=== PATIENT | female | born 1945 | race Caucasian/White ===

== ENCOUNTER 2018-03-22 08:05 | Observation (INO) ==
--- NOTE | 2018-03-22 08:22 | ED ---
HPI General Chief complaint: Weakness Stated complaint: general weakness/evac Time Seen by Provider: 03/22/18 08:21 Source: patient Mode of arrival: ambulatory Limitations: no limitations History of Present Illness HPI Narrative: 72-year-old female patient with history of hypertension presents to the ER today brought in by EMS because she was incontinent of urine in bed this morning and looked more disoriented according to . Patient currently denies issues, states that she peed in bed and her called the ambulance. She denies any abdominal pains, chest pains, headaches, shortness of breath, or other symptoms. However, it is unclear whether she is a reliable historian. Modifying Factors: None Associated Signs & Symptoms: Urinary incontinence, disorientation Risk Factors: Elderly Related Data Home Medications Medication Instructions Recorded Confirmed Unable to Obtain Home Meds 03/22/18 03/22/18 Allergies Allergy/AdvReac Type Severity Reaction Status Date / Time No Known Allergies Allergy Verified 03/22/18 08:07 Review of Systems ROS Unobtainable ROS Unobtainable: unobtainable due to mental status [facility] Medical History Medical History Hx of hysterectomy (Acute) Hypertension (Acute) Social History Social History Substance History: No History of Abuse Smoking Status: Former smoker How Often Do You Have a Drink Containing Alcohol: Monthly or less Recent Travel in [facility] within the Last 8 Weeks: No Recent Out of Country Travel within the Last 8 Weeks: No Immunization History Tetanus Immunization: Unsure Exam Narrative Exam Narrative: GENERAL: Well-developed elderly female patient currently and mild distress. Awake, alert, oriented x2. SKIN: Focused skin assessment warm/dry. HEAD: Atraumatic. Normocephalic. EYES: Pupils equal and round. No scleral icterus. No injection or drainage. ENT: No nasal bleeding or discharge. Mucous membranes pink and moist. NECK: Trachea midline. No JVD. CARDIOVASCULAR: Regular rate and rhythm. No murmur appreciated. RESPIRATORY: No accessory muscle use. Clear to auscultation. Breath sounds equal bilaterally. GASTROINTESTINAL: Abdomen soft, non-tender, nondistended. Hepatic and splenic margins not palpable. MUSCULOSKELETAL: No obvious deformities. No clubbing. No cyanosis. No edema. NEUROLOGICAL: Awake and alert. No obvious cranial nerve deficits. Motor grossly within normal limits. Normal speech. PSYCHIATRIC: Appropriate mood and affect; insight and judgment poor. Course Initial Documented Vital Signs Temperature 99.2 F 03/22/18 08:07 Pulse Rate 62 03/22/18 08:07 Respiratory Rate 20 03/22/18 08:07 Blood Pressure 134/91 H 03/22/18 08:07 Pulse Oximetry 98 03/22/18 08:07 Last Documented Vital Signs Temperature 99.2 F 03/22/18 08:07 Pulse Rate 63 03/22/18 08:29 Respiratory Rate 20 03/22/18 08:29 Blood Pressure 135/77 03/22/18 08:29 Pulse Oximetry 99 03/22/18 08:25 Medical Decision Making MDM Narrative Medical decision making narrative: Lab work is fairly unremarkable. Her CT brain did not show any signs of acute processes. Vital signs are stable in the ER. Patient is oriented to self and place but thinks that this is 1946. At this point, it is unclear what is causing her urinary incontinence. My plan would be to admit her for further evaluation. Case is discussed with Dr. Gilman for admission as an observation. Medical Screen Exam Complete: Yes Emergency Medical Condition: Yes Differential Diagnosis Differential Diagnosis: UTI versus electrolyte abnormalities versus sepsis versus seizures versus acute intracranial processes Lab Data Lab results reviewed: Yes I reviewed the patient's lab results. Result diagrams: 03/22/18 08:15 03/22/18 08:15 Lab Results 03/22/18 03/22/18 03/22/18 Range/Units 08:15 08:15 08:40 CBC w Diff Auto diff final WBC 8.4 (4.0-11.0) th/mm3 RBC 4.06 (4.00-5.30) mil/mm3 Hgb 12.9 (11.6-15.3) gm/dL Hct 39.1 (35.0-46.0) % MCV 96.5 (80.0-100.0) fL MCH 31.8 (27.0-34.0) pg MCHC 33.0 (32.0-36.0) % RDW 13.8 (11.6-17.2) % Plt Count 300 (150-450) th/mm3 MPV 9.2 (7.0-11.0) fL Neut % (Auto) 54.5 (16.0-70.0) % Lymph % (Auto) 24.0 (9.0-44.0) % [place] % (Auto) 7.0 (0.0-8.0) % Eos % (Auto) 13.7 H (0.0-4.0) % Baso % (Auto) 0.8 (0.0-2.0) % Neut # (Auto) 4.6 (1.8-7.7) th/mm3 Lymph # (Auto) 2.0 (1.0-4.8) th/mm3 [place] # (Auto) 0.6 (0.0-0.9) th/mm3 Eos # (Auto) 1.1 H (0.0-0.4) th/mm3 Baso # (Auto) 0.1 (0.0-0.2) th/mm3 WBC Differential . Differential Comment . Sodium 140 (136-145) meq/L Potassium 3.9 (3.5-5.1) meq/L Chloride 106 (98-107) meq/L Carbon Dioxide 28.9 (21.0-32.0) meq/L Anion Gap 5 (5-15) meq/L BUN 11 (7-18) mg/dL Creatinine 1.20 H (0.50-1.00) mg/dL Estimated GFR 44 L (>89) mL/min Random Glucose 99 (74-106) mg/dL Calcium 10.1 (8.5-10.1) mg/dL Magnesium 2.3 (1.5-2.5) mg/dL Total Bilirubin 0.4 (0.2-1.0) mg/dL AST 13 L (15-37) U/L ALT 16 (10-53) U/L Alkaline Phosphatase 79 (45-117) U/L Troponin I Less than 0.02 L (0.02-0.05) ng/mL Total Protein 7.6 (6.4-8.2) g/dL Albumin 3.8 (3.4-5.0) g/dL Ur Collection Type Cath Urine Color Straw (Yellw/Straw) Urine Clarity Clear (Clear) Urine pH 7.0 (5.0-8.5) Ur Specific [place] Less/equal 1.005 (1.002-1.035) Urine Protein Negative (Neg-Trace) mg/dL Urine Glucose (UA) Negative (Negative) mg/dL Urine Ketones Negative (Negative) mg/dL Urine Occult Blood Trace (Negative) Urine Nitrate Negative (Negative) Urine Bilirubin Negative (Negative) Urine Urobilinogen 0.2 (Less than 2) mg/dL Ur Leukocyte Esterase Negative (Negative) Urine RBC 0-3 (0-3) /hpf Ur Squamous Epith Cells 0-5 (0-5) /hpf Ur Transition Epith Cell 1-5 H (None) /hpf Micro UA Comment Cath-culture not ind Ur Microscopic Review Microscopic reviewed Urine Culture Comments Cath-cult not ind Urine Collection Time 840 hours Imaging Data Attestation: I personally reviewed and interpreted this imaging study as follows : Radiologist's impression: Head CT 03/22/18 08:24 CONCLUSION: 1. Negative CT Head non contrast. 2. No evidence of acute infarct, hemorrhage, mass or edema. . ECG Data Attestation: I personally reviewed and interpreted this ECG as follows: Interpretation: EKG shows NSR, no ST elevation or depression, and no arrhythmias. No significant T-wave inversions. Discharge Plan Discharge Disposition Patient Disposition: ED Admit(ED Internal Use Only) Discharge Condition Condition: Stable Discharge Order Discharge Orders: ED Use Only Admit Order (Routine); Ordered 03/22/18 Ordered By: Arpit Schroeder Discharge Details Anticipated Discharge Date: 03/22/18 Diagnosis: Altered mental status Physicians Team ED Provider: Arpit Schroeder Primary Care Provider: UNKNOWN, Rxs /Orders / Referrals /Forms Prescriptions: No Action Unable to Obtain Home Meds RF: 0 Discharge Interventions Interventions: Vital Signs Last Done: 03/22/18 08:29 Status ED Status: With Doctor
[2018-03-22 08:33] LABS: Baso # (Auto) 0.1 th/mm3 (0.0-0.2); Baso % (Auto) 0.8 % (0.0-2.0); Eos # (Auto) 1.1 th/mm3 (0.0-0.4); Eos % (Auto) 13.7 % (0.0-4.0); Hematocrit 39.1 % (35.0-46.0); Hemoglobin 12.9 gm/dL (11.6-15.3); Mean Corpuscular Hemoglobin 31.8 pg (27.0-34.0); Mean Corpuscular Volume 96.5 fL (80.0-100.0); Mean Platelet Volume 9.2 fL (7.0-11.0); Mono # (Auto) 0.6 th/mm3 (0.0-0.9); Neut # (Auto) 4.6 th/mm3 (1.8-7.7); Neut % (Auto) 54.5 % (16.0-70.0); Platelet Count 300 th/mm3 (150-450); Red Blood Count 4.06 mil/mm3 (4.00-5.30); Red Cell Distribution Width 13.8 % (11.6-17.2); White Blood Count 8.4 th/mm3 (4.0-11.0)
[2018-03-22 08:50] LABS: Chloride 106 meq/L (98-107); Potassium 3.9 meq/L (3.5-5.1); Sodium 140 meq/L (136-145)
[2018-03-22 08:53] LABS: Calcium 10.1 mg/dL (8.5-10.1)
[2018-03-22 08:54] LABS: Albumin 3.8 g/dL (3.4-5.0); Anion Gap 5 meq/L (5-15); Blood Urea Nitrogen 11 mg/dL (7-18); Carbon Dioxide 28.9 meq/L (21.0-32.0); Glucose,Random 99 mg/dL (74-106); Magnesium 2.3 mg/dL (1.5-2.5)
[2018-03-22 08:57] LABS: Alanine Aminotransferase 16 U/L (10-53); Aspartate Aminotransferase 13 U/L (15-37); Glomerular Filtration Rate 44 mL/min (>89)
[2018-03-22 08:59] LABS: Total Protein 7.6 g/dL (6.4-8.2)
[2018-03-22 09:00] LABS: Alkaline Phosphatase 79 U/L (45-117)
[2018-03-22 09:00] LABS: Bilirubin,Urine Negative (Negative); Clarity,Urine Clear (Clear); Glucose,Urine (UA) Negative (Negative); Leukocyte Esterase,Urine Negative (Negative); Nitrite,Urine Negative (Negative); Specific Gravity,Urine Less/Equal 1.005 (1.002-1.035); Urobilinogen,Urine 0.2 mg/dL (Less than 2)
[2018-03-22 09:02] LABS: Color,Urine Straw (Yellw/Straw)
[2018-03-22 09:20] LABS: Collection Time,Urine 840 hours
--- NOTE | 2018-03-22 09:21 | CT ---
EXAM DATE: 03/22/2018 9:00 AM EST AGE/SEX: 72 years / Female INDICATIONS: Episode of confusion and incontinence this morning. CLINICAL DATA: This is the patient's initial encounter. Patient reports that signs and symptoms have been present for 1 day and indicates a pain score of 0/10. MEDICAL/SURGICAL HISTORY: Hypertension. Hysterectomy. RADIATION DOSE: 56.05 CTDI (mGy) COMPARISON: No prior exams available for comparison. TECHNIQUE: CT of the head without contrast. Using automated exposure control and adjustment of the mA and/or kV according to patient size, radiation dose was kept as low as reasonably achievable to ob tain optimal diagnostic quality images. DICOM format image data is available electronically for revi ew and comparison. FINDINGS: Cerebrum: The ventricles are normal for age. No evidence of midline shift, mass lesion, hemorrhage or acute infarction. No extraaxial fluid collections are seen. Posterior Fossa: The cerebellum and brainstem are intact. The 4th ventricle is midline. The cerebe llopontine angle is unremarkable. Extracranial: The visualized portion of the orbits is intact. Skull: The calvaria is intact. No evidence of skull fracture. CONCLUSION: 1. Negative CT Head non contrast. 2. No evidence of acute infarct, hemorrhage, mass or edema. . Electronically signed by: Fidel Villasenor MD Board Certified Radiologist 03/22/2018 9:20 AM EST
[2018-03-22 09:28] LABS: RBC,Urine 0-3 /hpf (0-3); Squamous Epithelial Cell,Urine 0-5 /hpf (0-5)
[2018-03-22 10:59] LABS: Amphetamine Screen,Urine Neg (Neg); Barbiturate Screen,Urine Neg (Neg); Cannabinoid Screen,Urine Neg (Neg); Cocaine Screen,Urine Neg (Neg)
[2018-03-22 11:00] LABS: Opiate Screen,Urine Neg (Neg)
[2018-03-22] MEDS ORDERED: Gadobutrol PF 7.5 MMOL/7.5 ML Vial (for RAD) IV.SIG ONE (11:16)
--- NOTE | 2018-03-22 11:37 | MR ---
EXAM DATE: 03/22/2018 11:31 AM EST AGE/SEX: 72 years / Female INDICATIONS: Altered mental status. CLINICAL DATA: This is the patient's initial encounter. Patient reports that signs and symptoms have been present for 1 day and indicates a pain score of 0/10. MEDICAL/SURGICAL HISTORY: Hypertension. Hysterectomy. COMPARISON: [facility], CT HEAD W/O CONTRAST, 03/22/2018. . TECHNIQUE: Multiplanar, multisequence examination of the brain was performed without and with 7 ml Ga davist (gadobutrol) contrast as a single exam dose. FINDINGS: Cerebrum: The ventricles are normal for age. No evidence of midline shift, mass lesion, hemorrhage or acute infarction. No extraaxial fluid collections are seen. The pituitary gland and suprasellar cistern are normal in configuration. White Matter: No significant signal abnormalities are seen in the white matter. Posterior Fossa: The cerebellum and brainstem are intact. The 4th ventricle is midline. The cerebel lopontine angle is unremarkable. The cerebellar tonsils are normal in position. Diffusion Imaging: No focal areas of restricted diffusion are seen. No evidence of acute infarction . Extracranial: The visualized portions of the orbits and paranasal sinuses are unremarkable. Post Contrast: No abnormal areas of parenchymal or dural enhancement. No evidence of blood-brain ba rrier breakdown. CONCLUSION: 1. Negative MR Brain with and without contrast. 2. No evidence of acute infarct, hemorrhage, mass or edema. 3. No evidence of enhancing intra-axial or extra-axial lesions. Electronically signed by: Fidel Villasenor MD Board Certified Radiologist 03/22/2018 11:35 AM EST
--- NOTE | 2018-03-22 11:57 | MB ---
cc: Shree Valiente MD, PhD DATE: 03/22/2018 REASON FOR CONSULTATION: Mental status change. HISTORY OF PRESENT ILLNESS: Ms. Cuevas is a 72-year-old female who was well yesterday. This morning woke up, her noted that she had urinary incontinence in her sleep and was very confused. No focal deficits. No headaches. No other neurologic complaints. The symptoms have since resolved. She is back to her baseline state. She does relate a similar episode about a year ago, but states she was confused for 8 days, was hospitalized at [facility] with negative workup including brain MRI. No known history of seizure disorder. NEUROLOGIC EXAMINATION: The patient is alert and oriented x3. Her speech is within normal limits. Cranial nerves are intact. Motor exam: No focal deficits are identified. Reflexes are symmetric. IMAGING STUDIES: CT brain negative. IMPRESSION: Brief episode of mental status change with bladder incontinence. Possibility includes encephalopathy versus stroke versus seizure. A CT brain negative. Recommend further evaluation with an EEG as well as an MRI of the brain. Shree Valiente MD, PhD SVITLANA/ts , 10:40 AM , 10:44 AM
[2018-03-22] MEDS: Sod Chloride 0.9% Inj 1,000 ML IV.CONT SCH (12:02)
--- NOTE | 2018-03-22 12:42 | ECG ---
Date Performed: 03/22/2018 Time Performed: 09:01:27 PTAGE: 72 years EKG: Sinus rhythm LEFT AXIS DEVIATION LOW QRS VOLTAGE IN PRECORDIAL LEADS POOR R WAVE PROGRESSION ABNORMAL ECG NO PREVIOUS TRACING DOCTOR: Naga Moran Interpretating Date/Time 03/22/2018 12:42:29
--- NOTE | 2018-03-22 16:13 | P.HP ---
History of Present Illness Primary Care Physician: UNKNOWN Chief Complaint: AMS/incontinence History of Present Illness: This is a 72-year-old female patient with a known medical history of hypertension who presented to the ED via EMS after being incontinent in bed as well as altered mental status. Supposedly patient was lying in bed soundly asleep when her was attempting to wake her this morning due to incontinence of urine in the bed, patient awoke and was supposedly confused and subsequently brought to the ED. She is seen and examined in room psych, patient is alert and oriented x3, states that she has never had an episode of incontinence before. States she had a full complete workup in March 2017 where she blacked out any other was said to be no cause. Denies any history of CVA. Patient states she has been relatively healthy, at her normal baseline, denies any recent fever, chills, cough, headache, abdominal pain, chest pain, nausea, diarrhea or dysuria. Patient denies any new changes to her medications. Has been eating and drinking well. Has been taking her medications as prescribed. Denies any lightheadedness or dizziness. Does follow with Dr. Lange, cardiology. - Diagnosis (1) Altered mental status (2) Bladder incontinence Review of Systems All other systems reviewed negative except as stated in HPI PMFSH - History History Provided By: Patient - Medical History Medical History: Medical History (Last Reviewed 03/22/18 @ 16:39 by Arelis Nieves) Hx of hysterectomy Hypertension - Family History Family History: Family History (Last Updated 03/22/18 @ 16:39 by Arelis Nieves) Other Family history non-contributory - Social History I have reviewed the patient's Social History: Yes - Tobacco History Second Hand Smoke Exposure: Yes Tobacco Use In Past 30 Days: Yes Smoking Status: Current every day smoker Tobacco Type: Cigarettes - Alcohol History How Often Do You Have a Drink Containing Alcohol: Never - Substance Use History Substance History: No History of Abuse - Travel History Recent Travel in the [place] Within the Last 8 Weeks: No Recent Travel Out of the Country Within the Last 8 Weeks: No - Immunization History Tetanus Immunization: Unsure Medications and Allergies Active Medications: Active Medications Sodium Chloride (Ns Inj) 1,000 mls @ 75 mls/hr IV.CONT .[id number] [facility] Last Admin: 03/22/18 12:02 Dose: 75 mls/hr Sodium Chloride (Ns Flush) 2 ml IV.FLUSH PRN PRN PRN Reason: FLUSH AFTER USING IV ACCESS Last Admin: 03/22/18 12:07 Dose: 2 ml Allergies Allergy/AdvReac Type Severity Reaction Status Date / Time No Known Allergies Allergy Verified 03/22/18 08:07 Home Medications Medication Instructions Recorded Confirmed Type biotin 10,000 mcg PO HS 03/22/18 03/22/18 History brimonidine 1 drp OPHTHALMIC (EYE) BID 03/22/18 03/22/18 History candesartan 16 mg PO HS 03/22/18 03/22/18 History levothyroxine 50 mcg PO HS 03/22/18 03/22/18 History lithium carbonate 600 mg PO HS 03/22/18 03/22/18 History timolol maleate 1 drp OPHTHALMIC (EYE) QID 03/22/18 03/22/18 History tramadol 50 mg PO QID PRN 03/22/18 03/22/18 History vit D3-folic [id number] 1 tab PO HS 03/22/18 03/22/18 History Exam Vital signs: Vital Signs 03/22/18 08:07 03/22/18 08:25 03/22/18 08:29 Temperature 99.2 F Pulse Rate 62 63 Respiratory Rate 20 20 Blood Pressure 134/91 H 135/77 Pulse Oximetry 98 99 03/22/18 10:15 03/22/18 12:00 Temperature 95.9 F L Pulse Rate 64 84 Respiratory Rate 16 17 Blood Pressure 103/65 162/97 H Pulse Oximetry 95 97 Intake & Output 03/21/18 03/22/18 03/22/18 18:59 06:59 18:59 Output Total 500 / 500 Balance -500 / -500 Weight 75.2 kg Output: Urine Amount (Catheter) 500 / 500 Straight 500 / 500 Other: Date of Last Bowel Movement 03/21/18 Weight On Admission 72.57 kg Narrative: GENERAL: Well-developed, well-nourished patient in [facility]. SKIN: Warm and dry. No rash. HEAD: Normocephalic. Atraumatic. EYES: Pupils equal and round. No scleral icterus. No injection or drainage. ENT: No nasal bleeding or discharge. Mucous membranes pink and moist. NECK: Supple. Trachea midline. CARDIOVASCULAR: Regular rate and rhythm. S1, S2 noted. No murmur appreciated. RESPIRATORY: No accessory muscle use. Clear to auscultation. Breath sounds equal bilaterally. GASTROINTESTINAL: Abdomen soft, non-tender, nondistended. Normoactive bowel sounds x4. MUSCULOSKELETAL: No obvious deformities. Extremities without clubbing, cyanosis , or edema. NEUROLOGICAL: Awake and alert. No obvious cranial nerve deficits. Motor grossly within normal limits. 5/5 muscle strength in bilateral upper and lower extremities. Normal speech. PSYCHIATRIC: Appropriate mood and affect; insight and judgment normal. Results - Labs CBC & Chem 7: 03/22/18 08:15 03/22/18 08:15 Labs: Laboratory Results - last 24 hr 03/22/18 03/22/18 03/22/18 08:15 08:15 08:40 CBC w Diff Auto diff final WBC 8.4 RBC 4.06 Hgb 12.9 Hct 39.1 MCV 96.5 MCH 31.8 MCHC 33.0 RDW 13.8 Plt Count 300 MPV 9.2 Neut % (Auto) 54.5 Lymph % (Auto) 24.0 [place] % (Auto) 7.0 Eos % (Auto) 13.7 H Baso % (Auto) 0.8 Neut # (Auto) 4.6 Lymph # (Auto) 2.0 [place] # (Auto) 0.6 Eos # (Auto) 1.1 H Baso # (Auto) 0.1 WBC Differential . Differential Comment . Sodium 140 Potassium 3.9 Chloride 106 Carbon Dioxide 28.9 Anion Gap 5 BUN 11 Creatinine 1.20 H Estimated GFR 44 L Random Glucose 99 Calcium 10.1 Magnesium 2.3 Total Bilirubin 0.4 AST 13 L ALT 16 Alkaline Phosphatase 79 Troponin I Less than 0.02 L Total Protein 7.6 Albumin 3.8 Ur Collection Type Cath Urine Color Straw Urine Clarity Clear Urine pH 7.0 Ur Specific [place] Less/equal 1.005 Urine Protein Negative Urine Glucose (UA) Negative Urine Ketones Negative Urine Occult Blood Trace Urine Nitrate Negative Urine Bilirubin Negative Urine Urobilinogen 0.2 Ur Leukocyte Esterase Negative Urine RBC 0-3 Ur Squamous Epith Cells 0-5 Ur Transition Epith Cell 1-5 H Micro UA Comment Cath-culture not ind Ur Microscopic Review Microscopic reviewed Urine Culture Comments Cath-cult not ind Urine Collection Time 840 Urine Opiates Screen Ur Barbiturates Screen Ur Amphetamines Screen U Benzodiazepines Scrn Urine Cocaine Screen U Cannabinoids Screen 03/22/18 08:40 CBC w Diff WBC RBC Hgb Hct MCV MCH MCHC RDW Plt Count MPV Neut % (Auto) Lymph % (Auto) [place] % (Auto) Eos % (Auto) Baso % (Auto) Neut # (Auto) Lymph # (Auto) [place] # (Auto) Eos # (Auto) Baso # (Auto) WBC Differential Differential Comment Sodium Potassium Chloride Carbon Dioxide Anion Gap BUN Creatinine Estimated GFR Random Glucose Calcium Magnesium Total Bilirubin AST ALT Alkaline Phosphatase Troponin I Total Protein Albumin Ur Collection Type Urine Color Urine Clarity Urine pH Ur Specific [place] Urine Protein Urine Glucose (UA) Urine Ketones Urine Occult Blood Urine Nitrate Urine Bilirubin Urine Urobilinogen Ur Leukocyte Esterase Urine RBC Ur Squamous Epith Cells Ur Transition Epith Cell Micro UA Comment Ur Microscopic Review Urine Culture Comments Urine Collection Time Urine Opiates Screen Neg Ur Barbiturates Screen Neg Ur Amphetamines Screen Neg U Benzodiazepines Scrn Neg Urine Cocaine Screen Neg U Cannabinoids Screen Neg - Imaging Impressions Head MRI 03/22/18 00:00 CONCLUSION: 1. Negative MR Brain with and without contrast. 2. No evidence of acute infarct, hemorrhage, mass or edema. 3. No evidence of enhancing intra-axial or extra-axial lesions. Head CT 03/22/18 08:24 CONCLUSION: 1. Negative CT Head non contrast. 2. No evidence of acute infarct, hemorrhage, mass or edema. . Caprini VTE Risk Assessment Caprini VTE Risk Assessment: Moderate/High Risk (score >= 2) Caprini Risk Assessment Model: Point Value = 1 Point Value = 2 Point Value = 3 Point Value = 5 Age 41-60 Minor surgery BMI > 25 kg/m2 Swollen legs Varicose veins or History of unexplained or recurrent spontaneous Oral contraceptives or hormone replacement Sepsis (< 1 month) Serious lung disease, including pneumonia (< 1 month) Abnormal pulmonary function Acute myocardial infarction Congestive heart failure (< 1 month) History of inflammatory bowel disease Medical patient at bed rest Age 61-74 Arthroscopic surgery Major open surgery (> 45 min) Laparoscopic surgery (> 45 min) Malignancy Confined to bed (> 72 hours) Immobilizing plaster cast Central venous access Age >= 75 History of VTE Family history of VTE Factor V Leiden Prothrombin [id number] Lupus anticoagulant Anticardiolipin antibodies Elevated serum homocysteine Heparin-induced thrombocytopenia Other congenital or acquired thrombophilia Stroke (< 1 month) Elective arthroplasty Hip, pelvis, or leg fracture Acute spinal cord injury (< 1 month) Prophylaxis Regimen: Total Risk Factor Score Risk Level Prophylaxis Regimen 0-1 Low Early ambulation 2 Moderate Order ONE of the following: *Sequential Compression Device (SCD) *Heparin 5000 units SQ BID 3-4 Higher Order ONE of the following medications: *Heparin 5000 units SQ TID *Enoxaparin/Lovenox 40 mg SQ daily (WT < 150 kg, CrCl > 30 mL/min) *Enoxaparin/Lovenox 30 mg SQ daily (WT < 150 kg, CrCl > 10-29 mL/min) *Enoxaparin/Lovenox 30 mg SQ BID (WT < 150 kg, CrCl > 30 mL/min) AND/OR *Sequential Compression Device (SCD) 5 or more Highest Order ONE of the following medications: *Heparin 5000 units SQ TID (Preferred with Epidurals) *Enoxaparin/Lovenox 40 mg SQ daily (WT < 150 kg, CrCl > 30 mL/min) *Enoxaparin/Lovenox 30 mg SQ daily (WT < 150 kg, CrCl > 10-29 mL/min) *Enoxaparin/Lovenox 30 mg SQ BID (WT < 150 kg, CrCl > 30 mL/min) AND *Sequential Compression Device (SCD) Assessment and Plan - Assessment (1) Altered mental status Code(s): R41.82 - Altered mental status, unspecified Status: Acute (2) Bladder incontinence Code(s): R32 - Unspecified urinary incontinence Status: Acute - Plan This is a 72-year-old female patient who presented to the ED with: Brief episode of altered mental status with bladder incontinence Differential diagnosis include encephalopathy vs stroke vs seizure. -Consult placed to neurology, input recommendations appreciated. -CT of the brain negative. MRI of the brain negative. EEG ordered pending. Follow. -Physical therapy ordered, evaluation pending. -CBC, BMP, UA and tox screen negative. -Add TSH and lithium level. -Neuro checks. -Seizure precautions. -EKG reviewed showing NSR with controlled heart rate, no ST changes. Continue cardiac tele overnight, rule out any arrhythmias. -Supportive care. History of bipolar disorder -Hold home lithium for now. Check lithium level. Hypertension, chronic -Continue on home medication. Monitor blood pressure trends. Hypothyroidism, chronic -Continue on home levothyroxine. Check TSH. DVT Prophylaxis: SCDs
[2018-03-22] MEDS: Timolol 0.25% Drops 5 ML Bottle EACH EYE SCH ×2 (18:07→21:11)
--- NOTE | 2018-03-22 18:15 | MG ---
cc: Shree Valiente MD, PhD TEST NUMBER: [id number] TECHNIQUE: This is a 17-channel electroencephalogram. DESCRIPTION: Background rhythm reveals symmetrical alpha activity frequency of 8-9 Hz. Amplitude is 20-30 microvolts. Some slowing is present in the theta range, likely related to drowsiness. There is some muscle artifact, and eye movement artifact is present. No definite epileptiform features are identified. There are some vertex sharp waves present, probably related to normal sleep activity. Later in the tracing, some sharp activity is identified, particularly in the left temporal lobe with some phase reversal. I believe this is likely epileptiform later in the tracing. INTERPRETATION: Abnormal study. There is some sharp activity identified mainly in the temporal area on the left side, but also the right side, suggestive of a possible seizure focus. Shree Valiente MD, PhD SVITLANA/akanksha , 05:55 PM , 05:58 PM
[2018-03-22] MEDS ORDERED: Levothyroxine 50 MCG Tablet PO SCH (21:00)
[2018-03-22] MEDS ORDERED: BRIMONIDINE EACH EYE SCH (21:00)
[2018-03-22] MEDS: levETIRAcetam 500 MG Tablet PO SCH (21:11)
[2018-03-23] MEDS: Sod Chloride 0.9% Inj 1,000 ML IV.CONT SCH ×2 (01:49→14:27)
[2018-03-23 06:59] LABS: Baso % (Auto) 0.5 % (0.0-2.0); Eos # (Auto) 0.9 th/mm3 (0.0-0.4); Eos % (Auto) 9.5 % (0.0-4.0); Hematocrit 36.2 % (35.0-46.0); Hemoglobin 12.3 gm/dL (11.6-15.3); Lymph # (Auto) 2.2 th/mm3 (1.0-4.8); Lymph % (Auto) 23.7 % (9.0-44.0); Mean Corpuscular HGB Conc 34.1 % (32.0-36.0); Mean Corpuscular Hemoglobin 32.6 pg (27.0-34.0); Mean Corpuscular Volume 95.5 fL (80.0-100.0); Mean Platelet Volume 9.4 fL (7.0-11.0); Mono # (Auto) 0.7 th/mm3 (0.0-0.9); Mono % (Auto) 7.3 % (0.0-8.0); Neut # (Auto) 5.5 th/mm3 (1.8-7.7); Platelet Count 264 th/mm3 (150-450); Red Blood Count 3.79 mil/mm3 (4.00-5.30); Red Cell Distribution Width 13.4 % (11.6-17.2); White Blood Count 9.3 th/mm3 (4.0-11.0)
[2018-03-23 07:12] LABS: Potassium 3.7 meq/L (3.5-5.1)
[2018-03-23 07:16] LABS: Calcium 9.3 mg/dL (8.5-10.1); Carbon Dioxide 26.1 meq/L (21.0-32.0)
--- NOTE | 2018-03-23 08:00 | P.PNIM ---
Subjective Interval history: Follow up new onset seizure. Patient seen and examined, lying in bed comfortably no apparent distress. Does states she had one bout of vomiting overnight. Zofran helped. Awaiting further neurology recommendations for positive EEG. Afebrile. Vital signs stable. No further incontinence or confusion today. Physical Exam Vital signs: Vital Signs 03/22/18 08:07 03/22/18 08:25 03/22/18 08:29 Temperature 99.2 F Pulse Rate 62 63 Respiratory Rate 20 20 Blood Pressure 134/91 H 135/77 Pulse Oximetry 98 99 03/22/18 10:15 03/22/18 12:00 03/22/18 16:00 Temperature 95.9 F L 96.9 F L Pulse Rate 64 84 75 Respiratory Rate 16 17 17 Blood Pressure 103/65 162/97 H 138/93 H Pulse Oximetry 95 97 98 03/22/18 20:00 03/23/18 00:00 Temperature 97.3 F L 97.4 F L Pulse Rate 71 66 Respiratory Rate 18 18 Blood Pressure 132/77 143/85 H Pulse Oximetry 97 95 Intake & Output 03/22/18 03/23/18 03/23/18 18:59 06:59 18:59 Intake Total 720 / 720 1090 / 1090 Output Total 500 / 500 1200 / 1200 Balance 220 / 220 -110 / -110 Weight 75.2 kg 76.8 kg Intake: IV 1000 / 1000 NS Inj 1,000 ML @ 75 mls/hr IV. 1000 / 1000 CONT .[id number] [facility] Rx#: [id number] Oral 720 / 720 90 / 90 Output: Urine 1200 / 1200 Urine Amount (Catheter) 500 / 500 Straight 500 / 500 Other: # Voids 3 Date of Last Bowel Movement 03/21/18 # Bowel Movements 0 Weight On Admission 72.57 kg Narrative: GENERAL: Well-developed, well-nourished patient in NAD. SKIN: Warm and dry. No rash. HEAD: Normocephalic. Atraumatic. EYES: Pupils equal and round. No scleral icterus. No injection or drainage. ENT: No nasal bleeding or discharge. Mucous membranes pink and moist. NECK: Supple. Trachea midline. CARDIOVASCULAR: Regular rate and rhythm. S1, S2 noted. No murmur appreciated. RESPIRATORY: No accessory muscle use. Clear to auscultation. Breath sounds equal bilaterally. GASTROINTESTINAL: Abdomen soft, non-tender, nondistended. Normoactive bowel sounds x4. MUSCULOSKELETAL: No obvious deformities. Extremities without clubbing, cyanosis , or edema. NEUROLOGICAL: Awake and alert. No obvious cranial nerve deficits. Motor grossly within normal limits. 5/5 muscle strength in bilateral upper and lower extremities. Normal speech. PSYCHIATRIC: Appropriate mood and affect; insight and judgment normal. - Urinary Catheter Management Straight Cath placed during this visit: no Reason for continuing: Not indwelling catheter Results - Labs CBC & Chem 7: 03/23/18 06:15 03/23/18 06:15 Laboratory Results - last 24 hr 03/22/18 03/22/18 03/22/18 08:15 08:15 08:40 CBC w Diff Auto diff final WBC 8.4 RBC 4.06 Hgb 12.9 Hct 39.1 MCV 96.5 MCH 31.8 MCHC 33.0 RDW 13.8 Plt Count 300 MPV 9.2 Neut % (Auto) 54.5 Lymph % (Auto) 24.0 [place] % (Auto) 7.0 Eos % (Auto) 13.7 H Baso % (Auto) 0.8 Neut # (Auto) 4.6 Lymph # (Auto) 2.0 [place] # (Auto) 0.6 Eos # (Auto) 1.1 H Baso # (Auto) 0.1 WBC Differential . Differential Comment . Sodium 140 Potassium 3.9 Chloride 106 Carbon Dioxide 28.9 Anion Gap 5 BUN 11 Creatinine 1.20 H Estimated GFR 44 L Random Glucose 99 Calcium 10.1 Magnesium 2.3 Total Bilirubin 0.4 AST 13 L ALT 16 Alkaline Phosphatase 79 Troponin I Less than 0.02 L Total Protein 7.6 Albumin 3.8 TSH Ur Collection Type Cath Urine Color Straw Urine Clarity Clear Urine pH 7.0 Ur Specific [place] Less/equal 1.005 Urine Protein Negative Urine Glucose (UA) Negative Urine Ketones Negative Urine Occult Blood Trace Urine Nitrate Negative Urine Bilirubin Negative Urine Urobilinogen 0.2 Ur Leukocyte Esterase Negative Urine RBC 0-3 Ur Squamous Epith Cells 0-5 Ur Transition Epith Cell 1-5 H Micro UA Comment Cath-culture not ind Ur Microscopic Review Microscopic reviewed Urine Culture Comments Cath-cult not ind Urine Collection Time 840 Urine Opiates Screen Ur Barbiturates Screen Ur Amphetamines Screen U Benzodiazepines Scrn [place] Urine Cocaine Screen U Cannabinoids Screen 03/22/18 03/22/18 03/22/18 08:40 18:37 18:37 CBC w Diff WBC RBC Hgb Hct MCV MCH MCHC RDW Plt Count MPV Neut % (Auto) Lymph % (Auto) [place] % (Auto) Eos % (Auto) Baso % (Auto) Neut # (Auto) Lymph # (Auto) [place] # (Auto) Eos # (Auto) Baso # (Auto) WBC Differential Differential Comment Sodium Potassium Chloride Carbon Dioxide Anion Gap BUN Creatinine Estimated GFR Random Glucose Calcium Magnesium Total Bilirubin AST ALT Alkaline Phosphatase Troponin I Total Protein Albumin TSH 0.691 Ur Collection Type Urine Color Urine Clarity Urine pH Ur Specific [place] Urine Protein Urine Glucose (UA) Urine Ketones Urine Occult Blood Urine Nitrate Urine Bilirubin Urine Urobilinogen Ur Leukocyte Esterase Urine RBC Ur Squamous Epith Cells Ur Transition Epith Cell Micro UA Comment Ur Microscopic Review Urine Culture Comments Urine Collection Time Urine Opiates Screen Neg Ur Barbiturates Screen Neg Ur Amphetamines Screen Neg U Benzodiazepines Scrn Neg [place] 0.8 Urine Cocaine Screen Neg U Cannabinoids Screen Neg 03/23/18 03/23/18 06:15 06:15 CBC w Diff Auto diff final WBC 9.3 RBC 3.79 L Hgb 12.3 Hct 36.2 MCV 95.5 MCH 32.6 MCHC 34.1 RDW 13.4 Plt Count 264 MPV 9.4 Neut % (Auto) 59.0 Lymph % (Auto) 23.7 [place] % (Auto) 7.3 Eos % (Auto) 9.5 H Baso % (Auto) 0.5 Neut # (Auto) 5.5 Lymph # (Auto) 2.2 [place] # (Auto) 0.7 Eos # (Auto) 0.9 H Baso # (Auto) 0.0 WBC Differential . Differential Comment . Sodium 143 Potassium 3.7 Chloride 111 H Carbon Dioxide 26.1 Anion Gap 6 BUN 10 Creatinine 0.94 Estimated GFR 59 L Random Glucose 109 H Calcium 9.3 D Magnesium Total Bilirubin AST ALT Alkaline Phosphatase Troponin I Total Protein Albumin TSH Ur Collection Type Urine Color Urine Clarity Urine pH Ur Specific [place] Urine Protein Urine Glucose (UA) Urine Ketones Urine Occult Blood Urine Nitrate Urine Bilirubin Urine Urobilinogen Ur Leukocyte Esterase Urine RBC Ur Squamous Epith Cells Ur Transition Epith Cell Micro UA Comment Ur Microscopic Review Urine Culture Comments Urine Collection Time Urine Opiates Screen Ur Barbiturates Screen Ur Amphetamines Screen U Benzodiazepines Scrn [place] Urine Cocaine Screen U Cannabinoids Screen - Imaging Impressions Head MRI 03/22/18 00:00 CONCLUSION: 1. Negative MR Brain with and without contrast. 2. No evidence of acute infarct, hemorrhage, mass or edema. 3. No evidence of enhancing intra-axial or extra-axial lesions. Head CT 03/22/18 08:24 CONCLUSION: 1. Negative CT Head non contrast. 2. No evidence of acute infarct, hemorrhage, mass or edema. . Assessment and Plan - Assessment (1) Altered mental status Code(s): R41.82 - Altered mental status, unspecified Status: Acute (2) Bladder incontinence Code(s): R32 - Unspecified urinary incontinence Status: Acute - Plan This is a 72-year-old female patient who presented to the ED with: New onset seizure -Brief episode of altered mental status with bladder incontinence at home -Consult placed to neurology, input recommendations appreciated. -CT of the brain negative. MRI of the brain negative. EEG showing possible seizure focus. -Physical therapy ordered, evaluation pending. -CBC, BMP, UA and tox screen negative. -TSH and lithium level normal. -Neuro checks. -Seizure precautions. -EKG reviewed showing NSR with controlled heart rate, no ST changes. -Continue cardiac tele overnight, rule out any arrhythmias. None overnight. -Supportive care. History of bipolar disorder -Hold home lithium for now. [place] level normal. Hypertension, chronic -Continue on home medication. Monitor blood pressure trends. Hypothyroidism, chronic -Continue on home levothyroxine. Normal TSH. DVT Prophylaxis: SCDs Discharge Planning: Await final recommendations from neurology for dc.
[2018-03-23] MEDS: levETIRAcetam 500 MG Tablet PO SCH (08:30)
[2018-03-23] MEDS: Timolol 0.25% Drops 5 ML Bottle EACH EYE SCH ×2 (09:00→13:27)
[2018-03-23] MEDS ORDERED: Senna/Docusate Sodium 8.6/50 MG Tablet PO SCH (09:00)
--- NOTE | 2018-03-23 11:57 | P.PNNEU ---
Subjective Subjective Comments: no new c/o. tolerating keppra Active Medications: Active Medications Sodium Chloride (Ns Inj) 1,000 mls @ 75 mls/hr IV.CONT .[id number] [facility] Last Admin: 03/23/18 01:49 Dose: 75 mls/hr Levetiracetam (Keppra) 500 mg PO BID [facility] Last Admin: 03/23/18 08:30 Dose: 500 mg Levothyroxine Sodium (Synthroid) 50 mcg PO [facility] Last Admin: 03/22/18 21:10 Dose: 50 mcg Losartan Potassium (Cozaar) 50 mg PO HS [facility] Last Admin: 03/22/18 21:10 Dose: 50 mg Ondansetron HCl (Zofran Inj) 4 mg IV.PUSH Q6H PRN PRN Reason: NAUSEA OR VOMITING Last Admin: 03/23/18 03:45 Dose: 4 mg Senna/Docusate Sodium (Bhakti-Colace) 1 tab PO DAILY [facility] Last Admin: 03/23/18 08:31 Dose: 1 tab Sodium Chloride (Ns Flush) 2 ml IV.FLUSH PRN PRN PRN Reason: FLUSH AFTER USING IV ACCESS Last Admin: 03/23/18 03:46 Dose: 2 ml Timolol Maleate (Timolol 0.25% Drops) 1 drops EACH EYE QID [facility] Last Admin: 03/23/18 09:00 Dose: 1 drops Allergies/Adverse Reactions: Allergies Allergy/AdvReac Type Severity Reaction Status Date / Time No Known Allergies Allergy Verified 03/22/18 08:07 Physical Exam Vital signs: Vital Signs 03/22/18 12:00 03/22/18 16:00 03/22/18 20:00 Temperature 95.9 F L 96.9 F L 97.3 F L Pulse Rate 84 75 71 Respiratory Rate 17 17 18 Blood Pressure 162/97 H 138/93 H 132/77 Pulse Oximetry 97 98 97 03/23/18 00:00 03/23/18 08:00 Temperature 97.4 F L Pulse Rate 66 65 Respiratory Rate 18 21 Blood Pressure 143/85 H 122/59 L Pulse Oximetry 95 95 Intake & Output 03/22/18 03/23/18 03/23/18 18:59 06:59 18:59 Intake Total 720 / 720 1090 / 1090 240 / 240 Output Total 500 / 500 1200 / 1200 200 / 200 Balance 220 / 220 -110 / -110 40 / 40 Weight 75.2 kg 76.8 kg Intake: IV 1000 / 1000 NS Inj 1,000 ML @ 75 mls/hr IV. 1000 / 1000 CONT .[id number] [facility] Rx#: [id number] Oral 720 / 720 90 / 90 240 / 240 Output: Urine 1200 / 1200 200 / 200 Urine Amount (Catheter) 500 / 500 Straight 500 / 500 Other: # Voids 3 Date of Last Bowel Movement 03/21/18 # Bowel Movements 0 Weight On Admission 72.57 kg - Routine Neurological Exam alert, oriented, speech and comprehension normal CN intact MOTOR 5/5 BUE and BLE - Urinary Catheter Management Straight Cath placed during this visit: no Reason for continuing: Not indwelling catheter Objective Radiology Results: MRI brain normal EEG shows bilateral epileptiform activity Laboratory Results - last 24 hr 03/22/18 03/22/18 03/23/18 18:37 18:37 06:15 CBC w Diff Auto diff final WBC 9.3 RBC 3.79 L Hgb 12.3 Hct 36.2 MCV 95.5 MCH 32.6 MCHC 34.1 RDW 13.4 Plt Count 264 MPV 9.4 Neut % (Auto) 59.0 Lymph % (Auto) 23.7 [place] % (Auto) 7.3 Eos % (Auto) 9.5 H Baso % (Auto) 0.5 Neut # (Auto) 5.5 Lymph # (Auto) 2.2 [place] # (Auto) 0.7 Eos # (Auto) 0.9 H Baso # (Auto) 0.0 WBC Differential . Differential Comment . Sodium Potassium Chloride Carbon Dioxide Anion Gap BUN Creatinine Estimated GFR Random Glucose Calcium TSH 0.[address] 0.8 03/23/18 06:15 CBC w Diff WBC RBC Hgb Hct MCV MCH MCHC RDW Plt Count MPV Neut % (Auto) Lymph % (Auto) [place] % (Auto) Eos % (Auto) Baso % (Auto) Neut # (Auto) Lymph # (Auto) [place] # (Auto) Eos # (Auto) Baso # (Auto) WBC Differential Differential Comment Sodium 143 Potassium 3.7 Chloride 111 H Carbon Dioxide 26.1 Anion Gap 6 BUN 10 Creatinine 0.94 Estimated GFR 59 L Random Glucose 109 H Calcium 9.[address] Review/Management - Review/Management Plan: Episode in combination with EEG findings most c/w SZ with post ictal confusion recommend keppra 500 mg bid She is stable from neuro standpoint to d/c and follow up with me in office in 3 weeks I told her not to drive for 6 months and she agrees
== END 2018-03-23 14:36 | disposition home or self-care (01) ==
LOC: PHEDA 08:05 → PHED 08:05 → PH3 10:45
PROVIDERS: ADMIT Internal Medicine; ATTEND Internal Medicine
CPT/HCPCS: 70450; 70553; 80048; 80053; 80178; 80307; 81001; 83735; 84443; 84484; 85025; 93005; 95819; 96360; 96361; 97162; 99285; A9585; G0378; G8987; G8988; J2405; J7030; P9612